=== PATIENT | female | born 1980 | race Hispanic/Latino ===

== ENCOUNTER 2019-07-25 22:34 | Inpatient (IN) | payer OTHER ==
[~2019-07-25] VITALS: Ht 160 cm; Wt 62.1 kg
[2019-07-25] MEDS ORDERED: SODIUM CHLORIDE 0.9% 1000ML 1,000 ML IV ONE (23:22)
[2019-07-25] MEDS ORDERED: MORPHINE SULFATE 4 MG/1ML SYG ONE (23:23)
[2019-07-25] MEDS ORDERED: ONDANSETRON HCL 4 MG/2 ML VIAL ONE (23:23)
[2019-07-25 23:40] LABS: BASOPHILS % (AUTO) 0.4 % (0.0-5.0); EOSINOPHILS % (AUTO) 2.3 % (0.0-8.0); HEMATOCRIT 35.2 % (36-48); LYMPHOCYTES % (AUTO) 43.5 % (21.0-51.0); MEAN CORPUSCULAR HEMOGLOBIN 28.2 pg (27.0-33.0); MEAN CORPUSCULAR HGB CONC 32.4 g/dL (32.0-36.0); MEAN CORPUSCULAR VOLUME 87.1 fL (79-99); MONOCYTES % (AUTO) 7.4 % (3.0-13.0); NEUTROPHILS % (AUTO) 46.2 % (40.0-77.0); PLATELET COUNT (AUTO) 335 K/uL (130-400); RED BLOOD CELL COUNT(AUTO) 4.04 MIL/uL (4.00-5.50); RED CELL DISTRIBUTION WIDTH 13.6 % (11.0-15.5); WHITE BLOOD COUNT (AUTO) 8.3 K/uL (4.8-10.8)
[2019-07-25 23:52] LABS: CREATININE 0.7 mg/dL (0.5-1.5); INR 0.89 (0.85-1.15); PARTIAL THROMBOPLASTIN TIME 26.3 SEC (26.3-35.5); POTASSIUM 3.3 mmol/L (3.5-5.1); PROTHROMBIN TIME 9.7 SEC (9.6-11.6)
[2019-07-25 23:56] LABS: ALBUMIN 3.5 g/dL (3.5-5.0); BILIRUBIN,TOTAL 0.1 mg/dL (0.2-1.0); TOTAL PROTEIN, SERUM 7.3 g/dL (6.0-8.3)
[2019-07-26] VITALS (7 sets, daily range): BP systolic 98–123; BP diastolic 62–81
[2019-07-26] MEDS ORDERED: ZOSYN 3.375GM+NS 50ML 50 ML IV ONE (01:29)
[2019-07-26] MEDS ORDERED: KETOROLAC TROMETHAMINE 30MG/ML ONE (01:29)
--- NOTE | 2019-07-26 02:00 | NUR ---
Received patient admitted for acute cholelithiasis complaining of abdominal pain in all upper quadrants mostly in her right upper quadrant and radiating t the back.At this time patient denies pain.Patient is NPO and instructed nothing by mouth.Started on LR at 125 ml/hr.Her Zosyn was given in [place] as per report.Patient is instructed to use call light for assistance which is placed within reach and she demonstrated understanding. is to bedside.
[2019-07-26] MEDS ORDERED: LACTATED RINGERS 1000ML 1,000 ML IV ONE (02:01)
[2019-07-26] MEDS: LACTATED RINGERS 1000ML 1,000 ML IV SCH ×3 (02:45→18:47)
[2019-07-26] MEDS ORDERED: ACETAMINOPHEN 650 MG SUPPOSITORY RC PRN (03:00)
--- NOTE | 2019-07-26 04:00 | NUR ---
ASSUME CARE ASSUME CARE FOR PT AT THIS TIME. PT CALM IN BED. NO S/S OF DISTRESS.
[2019-07-26 04:56] LABS: HEMATOCRIT 34.2 % (36-48); MEAN CORPUSCULAR HEMOGLOBIN 28.1 pg (27.0-33.0); MEAN CORPUSCULAR HGB CONC 31.9 g/dL (32.0-36.0); MEAN CORPUSCULAR VOLUME 88.1 fL (79-99); PLATELET COUNT (AUTO) 296 K/uL (130-400); RED BLOOD CELL COUNT(AUTO) 3.88 MIL/uL (4.00-5.50); RED CELL DISTRIBUTION WIDTH 13.9 % (11.0-15.5); WHITE BLOOD COUNT (AUTO) 7.2 K/uL (4.8-10.8)
[2019-07-26 05:23] LABS: BILIRUBIN,TOTAL 0.2 mg/dL (0.2-1.0); CREATININE 0.7 mg/dL (0.5-1.5); TOTAL PROTEIN, SERUM 6.3 g/dL (6.0-8.3)
[2019-07-26] MEDS: ONDANSETRON HCL 4 MG/2 ML VIAL IVP PRN (05:34)
[2019-07-26] MEDS: MORPHINE SULFATE 4 MG/1ML SYG IVP PRN (05:35)
[2019-07-26] MEDS ORDERED: ACETAMINOPHEN ELIXIR 650 MG/20.3 ML UDCUP ONE ×3 (11:44→23:07)
[2019-07-26] MEDS: ZOSYN 3.375GM+NS 50ML 50 ML IV SCH ×2 (11:58→18:30)
--- NOTE | 2019-07-26 16:34 | NUR ---
D/C PLAN CM spoke to pt regarding d/c planning. Pt is ind[place] and lives with spouse. States spouse can assist in care if needed. CM provided community resources packet. Plan to home. No needs verbalized or identified. CM to follow up. Addendum: 07/26/19 at 1636 by TRESA MALIN CM Amended: Links added.
[2019-07-26] MEDS ORDERED: GUAIFENESIN 600 MG TABLET.ER PO SCH (22:30)
[2019-07-27] MEDS: ZOSYN 3.375GM+NS 50ML 50 ML IV SCH ×3 (02:40→17:38)
[2019-07-27] MEDS: LACTATED RINGERS 1000ML 1,000 ML IV SCH ×2 (02:48→16:29)
[2019-07-27 04:02] VITALS: BP 97/58
[2019-07-27 07:42] VITALS: BP 100/46
[2019-07-27] MEDS ORDERED: ACETAMINOPHEN 325 MG TAB ONE (08:50)
[2019-07-27] MEDS ORDERED: ACETAMINOPHEN 325 MG TAB PO PRN (11:45)
[2019-07-27] MEDS ORDERED: KETOROLAC TROMETHAMINE 30MG/ML ONE (12:12)
[2019-07-27 12:18] VITALS: BP 91/54
[2019-07-27 17:13] VITALS: BP 114/74
[2019-07-27 19:36] VITALS: BP 115/70
[2019-07-27 23:38] VITALS: BP 119/71
[2019-07-28] VITALS (24 sets, daily range): BP systolic 99–167; BP diastolic 63–98
[2019-07-28] MEDS: ZOSYN 3.375GM+NS 50ML 50 ML IV SCH ×3 (01:43→17:41)
[2019-07-28] MEDS: LACTATED RINGERS 1000ML 1,000 ML IV SCH ×4 (01:43→20:09)
[2019-07-28] MEDS: KETOROLAC TROMETHAMINE 30MG/ML IV PRN ×3 (04:51→21:12)
[2019-07-28] MEDS ORDERED: LIDOCAINE PF 2% 5ML ABBOJECT ONE (13:01)
[2019-07-28] MEDS ORDERED: MIDAZOLAM HCL 1 MG/ML 2ML VIAL ONE (13:03)
[2019-07-28] MEDS ORDERED: ROCURONIUM 10MG/1ML SYR 10 MG/ML ML ONE (13:04)
[2019-07-28] MEDS ORDERED: PROPOFOL 10 MG/ML 20ML VIAL IV ONE ×2 (13:04→13:50)
[2019-07-28] MEDS ORDERED: FENTANYL CITRATE PF 50 MCG/1 ML 2ML VIAL ONE ×2 (13:06→14:02)
[2019-07-28] MEDS ORDERED: CEFAZOLIN SODIUM 1 GM VIAL ONE (13:33)
[2019-07-28] MEDS ORDERED: ONDANSETRON HCL 4 MG/2 ML VIAL ONE (13:34)
[2019-07-28] MEDS ORDERED: GLYCOPYRROLATE 1 MG/5 ML SYRINGE ONE (13:41)
[2019-07-28] MEDS ORDERED: NEOSTIGMINE 5MG/5ML SYR IV ONE (13:42)
[2019-07-28] MEDS ORDERED: DEXAMETHASONE SOD PHOSPHATE 10MG/ML 1ML VIAL ONE (13:44)
[2019-07-28] MEDS ORDERED: BUPIVACAINE/PF 0.25% 30ML VIAL IJ ONE (13:48)
[2019-07-28] MEDS: MORPHINE SULFATE 2 MG/ML 1ML SYG IVP PRN ×3 (14:22→23:02)
[2019-07-28] MEDS ORDERED: HYDROMORPHONE 1 MG/1 ML AMP ONE (14:30)
[2019-07-28] MEDS: MORPHINE SULFATE 4 MG/1ML SYG IVP PRN ×2 (15:34→20:09)
--- NOTE | 2019-07-28 16:25 | NUR ---
DR. REICH PATIENT REPORTS PERSISTENT AND SEVERE RUQ ABDOMINAL PAIN 02/20, NO PAIN RELIEF REPORTED AFTER PAIN MEDICATION ADMINISTRATION. PATIENT REPORTS RUQ PAIN RADIATES TO BACK. CALLED DR. REICH TO REPORT PATIENT SYMPTOMS. ORDERS RECEIVED VIA TELEPHONE/READBACK. Addendum: 07/28/19 at 1631 by MAITE KENDALL RN RN DR. REICH ALSO TOLD ME HE WOULD SEND SAADIA SCHAFER TO COME SEE PATIENT.
[2019-07-28] MEDS ORDERED: MEPERIDINE-PF 25 MG/ML SYG ONE (16:50)
--- NOTE | 2019-07-28 17:05 | NUR ---
SAADIA SCHAFER HERE TO SEE PATIENT SAADIA SCHAFER ASSESSED PATIENTS ABDOMEN AND REPORTED LEVEL OF PAIN. EXPLAINED TO PATIENT THE PAIN SHOULD DECREASE OVER TIME, THAT HE BELIEVES PAIN COULD BE RELATED TO "GAS" USED DURING SURGERY AND ENCOURAGED PATIENT TO AMBULATE WHEN MORE AWAKE. SAADIA SCHAFER TOLD ME TO CONTINUE TO MONITOR PATIENT AND IF PAIN LEVEL STILL REPORTED HIGH THIS EVENING TO CALL HIM BACK.
[2019-07-28] MEDS ORDERED: MEPERIDINE HCL/PF 25 MG/0.5 ML AMPUL IVP ONE (17:45)
[2019-07-28] MEDS: ONDANSETRON HCL 4 MG/2 ML VIAL IVP PRN (20:25)
--- NOTE | 2019-07-28 21:02 | NUR ---
SAADIA NICK WAS CALLED THAT PATIENT STILL COMPLAINING OF PAIN WITH PS OF 10/10 TO RIGHT UPPER BACK ,RIGHT FLANK AREA AND RIGHT SIDE OF ABDOMEN WITHIN AN HOUR THE PAIN MED WAS ADMINISTERED . ALSO, INFORMED THAT THE INCISION NEAR UMBILICAL AREA BLED A LITTLE AND DRESSING WAS CHANGED. REPORTED ALSO THAT PER PT REPORT , SHE'S HAVING HER MONTHLY PERIOD. VS ARE FOLLOWS: BP: 134/78 ; HR: 92 ; RR: 18; TEMP: 98 ORAL AND O2SAT AT 98-100%RA. HE ORDERED TO HAVE REPEAT LABS IN AM ( CBC AND CMP) AND TO APPLY ABDOMINAL BINDER. ALSO, TO GIVE THE TORADOL 30 MG IV FOR ITS ALREADY DUE. PATIENT CONTINUED TO BE MONITORED AND OBSERVED FOR ANY CHANGES IN STATUS. NO APPARENT DISTRESS NOTED.
[2019-07-28] MEDS: ACETAMINOPHEN-CODEINE 300/30MG TAB PO PRN (23:40)
[2019-07-29] MEDS: MORPHINE SULFATE 4 MG/1ML SYG IVP PRN ×4 (00:43→15:16)
[2019-07-29] MEDS: ONDANSETRON HCL 4 MG/2 ML VIAL IVP PRN ×2 (02:14→14:58)
[2019-07-29] MEDS: ZOSYN 3.375GM+NS 50ML 50 ML IV SCH ×3 (02:14→17:47)
[2019-07-29] MEDS: MORPHINE SULFATE 2 MG/ML 1ML SYG IVP PRN ×4 (02:20→21:25)
[2019-07-29 03:44] VITALS: BP 145/80
[2019-07-29] MEDS: KETOROLAC TROMETHAMINE 30MG/ML IV PRN ×2 (04:35→22:28)
[2019-07-29] MEDS: ACETAMINOPHEN-CODEINE 300/30MG TAB PO PRN ×3 (05:48→17:47)
[2019-07-29 06:17] LABS: HEMATOCRIT 32.2 % (36-48); MEAN CORPUSCULAR HEMOGLOBIN 28.2 pg (27.0-33.0); MEAN CORPUSCULAR HGB CONC 32.9 g/dL (32.0-36.0); MEAN CORPUSCULAR VOLUME 85.6 fL (79-99); PLATELET COUNT (AUTO) 327 K/uL (130-400); RED BLOOD CELL COUNT(AUTO) 3.76 MIL/uL (4.00-5.50); RED CELL DISTRIBUTION WIDTH 13.1 % (11.0-15.5); WHITE BLOOD COUNT (AUTO) 13.1 K/uL (4.8-10.8)
[2019-07-29 06:24] LABS: ALBUMIN 3.2 g/dL (3.5-5.0); BILIRUBIN,TOTAL 0.5 mg/dL (0.2-1.0); CREATININE 0.7 mg/dL (0.5-1.5); POTASSIUM 3.4 mmol/L (3.5-5.1); TOTAL PROTEIN, SERUM 6.9 g/dL (6.0-8.3)
--- NOTE | 2019-07-29 06:44 | NUR ---
Tried to contact Dr. Haskins at 0634 and [phone] regarding moderate amount of bleeding to umbilical region but no reply. Reported to AM shift nurse accordingly.
--- NOTE | 2019-07-29 06:48 | NUR ---
Left a voice message to Sir Ye informing that pt dressing (2 pcs, OS 4x4) was soaked with blood at around 0618. VS are as follows: BP: 159/93 ; HR: 76 ; RR:17 ; Temp: 98.3 oral and O2Sat at 96% room air. Pain is still severe and pain med given as ordered. Pt. alert and responsive, but looking weak. No apparent distress noted. Endorsed to AM shift. Addendum: 07/29/19 at 0813 by KATHERIN LEMOS RN RN Location site: at the umbilical area.
[2019-07-29 07:19] VITALS: BP 140/77
--- NOTE | 2019-07-29 07:40 | NUR ---
DR. REICH SPOKE TO DR. REICH TO REPORT UMBILICAL INCISION ACTIVELY OOZING MODERATE AMOUNT OF SANGUINEOUS DRAINAGE. INCISION APPROXIMATED . INFORMED MD OF PATIENTS LAB RESULTS TODAY AND REPORTED PATIENTS PAIN LEVEL "10/10". DR. REICH REPLIED TO APPLY PRESSURE DRESSING OVER SITE AND THAT SAADIA SCHAFER WOULD BE IN TO SEE PATIENT TODAY.
--- NOTE | 2019-07-29 07:45 | NUR ---
PRESSURE DRESSING APPLIED REMOVED GAUZE DRESSING WHICH HAD A MODERATE AMOUNT OF SANGUINEOUS DRAINAGE. UMBILICAL INCISION APPROXIMATED WITH 4 JOEY INTACT. ACTIVELY SEEPING DRAINAGE APPEARS TO BE COMING FROM ONE SPACE BETWEEN TWO JOEY. APPLIED TWO 4X4 GAUZE, ONE ABDOMINAL PAD OVER UMBILICAL INCISION SITE. APPLIED PRESSURE DRESSING OVER SITE. INFORMED PATIENT OF DR. DAMIR MORAN AND SAADIA SCHAFER WILL BE INTO SEE HER.
[2019-07-29 08:31] LABS: LYMPHOCYTES % (MANUAL) 23 % (22-44); MAN.DIFF COMMENT-IMPRESSION MANUAL DIFFERENTIAL; MONOCYTES % (MANUAL) 5 % (2-9); SEGMENTED NEUTROPHILS % 72 % (40-70)
[2019-07-29 08:32] LABS: PLATELET MORPHOLOGY COMMENT ADEQUATE
[2019-07-29 10:51] VITALS: BP 151/90
[2019-07-29] MEDS ORDERED: LIDOCAINE 1%-EPI 1:100,000 20 ML VIAL IJ SCH (12:30)
--- NOTE | 2019-07-29 13:00 | NUR ---
BEDSIDE SUTURE PLACEMENT SAADIA SCHAFER EXPLAINED TO PATIENT REASON FOR SUTURE PLACEMENT TO REINFORCE UMBILICAL INCISION SITE OF DRAINAGE. PATIENT VERBALIZED AGREEMENT. PATIENT LAYING SUPINE IN BED. REMOVED PRESSURE DRESSING OVER UMBILICAL INCISION SITE. INCISION APPROXIMATED WITH 4 JOEY. SANGUINEOUS DRAINAGE NOTED TO BE COMING FROM IN BETWEEN TWO JOEY. SAADIA SCHAFER PREPPED SITE WITH BETADINE AND ADMINISTERED LOCAL ANESTHETIC (LIDOCAINE/EPI INJECTION). Peewee ZEE THEN APPLIED TWO SUTURES ON SITE OF DRAINAGE AT UMBILICAL INCISION. REAPPLIED PRESSURE DRESSING AFTER PROCEDURE. PATIENT TOLERATED WELL.
[2019-07-29] MEDS ORDERED: IOHEXOL-350 75 ML VIAL IV ONE (14:05)
[2019-07-29] MEDS ORDERED: POTASSIUM CHLORIDE 20 MEQ ERTAB PO PRN (14:30)
[2019-07-29] MEDS ORDERED: POTASSIUM CHLORIDE 10% ELIXIR 20 MEQ/15 ML UDCUP PO PRN (14:30)
[2019-07-29] MEDS ORDERED: POTASSIUM CHLORIDE 20MEQ/100ML 100 ML IV PRN (14:30)
[2019-07-29] MEDS: LACTATED RINGERS 1000ML 1,000 ML IV SCH (14:58)
[2019-07-29 15:27] VITALS: BP 127/77
--- NOTE | 2019-07-29 16:35 | NUR ---
SAADIA SCHAFER CALLED TO INFORM CT ABD/PELVIS RESULTS. ORDERS PLACED VIA TELEPHONE/RB. STATES HE WILL BE IN TOMORROW TO SPEAK TO PATIENT REGARDING RESULTS.
[2019-07-29 19:51] VITALS: BP 126/70
[2019-07-29 23:37] VITALS: BP 122/65
[2019-07-30] MEDS: ZOSYN 3.375GM+NS 50ML 50 ML IV SCH ×3 (01:41→17:52)
[2019-07-30] MEDS: ACETAMINOPHEN-CODEINE 300/30MG TAB PO PRN ×2 (01:42→09:20)
[2019-07-30] MEDS: KETOROLAC TROMETHAMINE 30MG/ML IV PRN ×3 (03:39→23:17)
[2019-07-30] MEDS: LACTATED RINGERS 1000ML 1,000 ML IV SCH ×2 (03:40→12:39)
[2019-07-30 03:42] VITALS: BP 121/63
[2019-07-30 05:45] LABS: MEAN CORPUSCULAR HEMOGLOBIN 28.4 pg (27.0-33.0); MEAN CORPUSCULAR HGB CONC 32.3 g/dL (32.0-36.0); MEAN CORPUSCULAR VOLUME 87.7 fL (79-99); PLATELET COUNT (AUTO) 298 K/uL (130-400); RED BLOOD CELL COUNT(AUTO) 3.42 MIL/uL (4.00-5.50); RED CELL DISTRIBUTION WIDTH 13.6 % (11.0-15.5); WHITE BLOOD COUNT (AUTO) 8.2 K/uL (4.8-10.8)
[2019-07-30 06:07] LABS: BAND NEUTROPHILS % (MANUAL) 4 % (0-2); LYMPHOCYTES % (MANUAL) 26 % (22-44); MAN.DIFF COMMENT-IMPRESSION MANUAL DIFFERENTIAL; MONOCYTES % (MANUAL) 8 % (2-9); SEGMENTED NEUTROPHILS % 62 % (40-70)
[2019-07-30] MEDS: MORPHINE SULFATE 4 MG/1ML SYG IVP PRN ×3 (06:07→20:32)
[2019-07-30 06:08] LABS: PLATELET MORPHOLOGY COMMENT ADEQUATE
[2019-07-30 06:10] LABS: BILIRUBIN,TOTAL 0.4 mg/dL (0.2-1.0); CREATININE 0.8 mg/dL (0.5-1.5); POTASSIUM 3.6 mmol/L (3.5-5.1); TOTAL PROTEIN, SERUM 6.6 g/dL (6.0-8.3)
[2019-07-30 08:00] VITALS: BP 135/76
[2019-07-30] MEDS: ONDANSETRON HCL 4 MG/2 ML VIAL IVP PRN (09:19)
--- NOTE | 2019-07-30 11:00 | NUR ---
TRACI BLUE DISCONTINUE IV FLUIDS AND SL SITE, MAY INCREASE DIET TO GI SOFT , AND ENCOURAGE PATIENT TO AMBULATE AROUND NURSING STATION AT LEAST 4 TIMES A DAY
[2019-07-30 12:00] VITALS: BP 126/69
[2019-07-30 16:00] VITALS: BP 130/80
[2019-07-30 19:51] VITALS: BP 127/62
[2019-07-30 23:36] VITALS: BP 144/83
[2019-07-31] MEDS: LACTATED RINGERS 1000ML 1,000 ML IV SCH (01:59)
[2019-07-31] MEDS: ZOSYN 3.375GM+NS 50ML 50 ML IV SCH ×2 (02:09→10:53)
[2019-07-31 04:00] VITALS: BP 149/75
[2019-07-31] MEDS: KETOROLAC TROMETHAMINE 30MG/ML IV PRN (06:22)
[2019-07-31 08:00] VITALS: BP 128/87
[2019-07-31] MEDS: ACETAMINOPHEN-CODEINE 300/30MG TAB PO PRN (08:20)
[2019-07-31 11:55] VITALS: BP 129/81
[2019-07-31] MEDS: MORPHINE SULFATE 4 MG/1ML SYG IVP PRN (13:02)
[2019-07-31] MEDS: ONDANSETRON HCL 4 MG/2 ML VIAL IVP PRN (13:20)
--- NOTE | 2019-07-31 15:00 | NUR ---
DISCHARGE DISCHARGE INSTRUCTIONS GIVEN TO PATIENT AND HER , BOTH VERBALIZED UNDERSTANDING. POST OP INTRUCTIONS GIVEN TO PATIENT. PRESCRIPTION SENT WITH PATIENT FOR PAIN MEDICATION. IV DISCONTINUED.
--- NOTE | 2019-07-31 15:18 | NUR ---
RD SCREEN - LOS X 6 Pt s/p lap nikita. Pt with abdominal pain at time of visit. Pt with fair PO intake. LBM 07/27/19; Possible constipation, Recommend stool softener/laxative when medically feasible. RD to continue to monitor food tolerance, nutritional labs. RD to follow up with [facility] cholecystectomy nutrition education. Please notify RD as additional nutrition concerns arise. Thank you. Addendum: 07/31/19 at [address] RD Amended: Links added.
== END 2019-07-31 15:20 | disposition home or self-care (01) | DRG 419 ==
LOC: EDH 22:34 → EDHIP 22:35 → 3AH 07-26 01:54
PROVIDERS: ADMIT Surgery; ATTEND Surgery
PROC: 0FT44ZZ Resection of Gallbladder, Percutaneous Endoscopic Approach (ICD-10-PCS; principal; 2019-07-28 08:00)
DX: K81.0 Acute cholecystitis (principal); Z83.3 Family history of diabetes mellitus
CPT/HCPCS: 36415; 74177; 76705; 80053; 81025; 82550; 82948; 83690; 84484; 85025; 85027; 85610; 85730; 93005; G0378; J0690; J1100; J1170; J1885; J2001; J2175; J2250; J2270; J2405; J2543; J2704; J2710; J3010; J3490; J7030; J7120; Q9967

== ENCOUNTER 2021-09-15 22:34 | Emergency (ER) | payer MEDICAID, OTHER ==
[~2021-09-15] VITALS: Ht 152.4 cm; Wt 62.6 kg
[2021-09-16] MEDS ORDERED: LIDOCAINE HCL MPF 1% 5ML VIAL ONE (01:55)
[2021-09-16 02:43] VITALS: BP 135/71
[2021-09-16] MEDS ORDERED: TETANUS/DIPHTHERIA TOXOID [ADULT] 0.5 ML VIAL IM ONE ×2 (02:55→03:00)
[2021-09-16] MEDS ORDERED: ACETAMINOPHEN 500 MG TABLET PO ONE (03:00)
== END 2021-09-16 03:09 | disposition home or self-care (01) ==
LOC: EDH 22:34
DX: S51.812A Laceration without foreign body of left forearm, initial encounter (principal); S80.01XA Contusion of right knee, initial encounter; S50.311A Abrasion of right elbow, initial encounter; S80.212A Abrasion, left knee, initial encounter; S80.211A Abrasion, right knee, initial encounter; W18.39XA Other fall on same level, initial encounter; Y93.89 Activity, other specified; Y92.89 Other specified places as the place of occurrence of the external cause; Y99.8 Other external cause status
CPT/HCPCS: 12001; 73070; 90471; 90714; 99283; J3490

== ENCOUNTER 2021-09-27 13:53 | Emergency (ER) | payer OTHER ==
[~2021-09-27] VITALS: Ht 157.5 cm; Wt 62.1 kg
[2021-09-27 13:57] VITALS: BP 124/77
== END 2021-09-27 14:30 | disposition home or self-care (01) ==
LOC: EDH 13:53
DX: S51.011D Laceration without foreign body of right elbow, subsequent encounter (principal); Z90.49 Acquired absence of other specified parts of digestive tract; X58.XXXD Exposure to other specified factors, subsequent encounter